=== PATIENT | female | born 1975 | race Caucasian/White ===

== ENCOUNTER 2021-02-13 20:25 | Emergency (ER) | payer OTHER ==
[~2021-02-13] VITALS: Ht 165.1 cm; Wt 63.5 kg
[~2021-02-13 20:25] MED LIST: NO REPORTABLE MEDS
--- NOTE | 2021-02-13 21:00 | NUR ---
PATIENT BIB C/O LEFT LEFT SIDED CHEST PAIN NONRADIATING THAT STARTED TODAY. PATIENT STATED NAUSEOUS ALSO. PATIENT IS A/O X 4, RR EVEN AND UNLABORED, NO SOB NOTED. 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
[2021-02-13 21:14] LABS: BASOPHILS % (AUTO) 0.9 % (0.0-2.0); HEMATOCRIT 40 % (33-45); HEMOGLOBIN 13.5 g/dL (11.5-14.8); LYMPHOCYTES # (AUTO) 1.4 K/uL (0.8-4.8); MEAN CORPUSCULAR HGB CONC 34 g/dl (31.0-36.0); MEAN CORPUSCULAR VOLUME 96 fL (82-100); MONOCYTES # (AUTO) 0.6 K/uL (0.1-1.30); MONOCYTES % (AUTO) 10.7 % (2.0-12.0); NEUTROPHILS # (AUTO) 3.2 K/uL (1.8-8.9); NEUTROPHILS % (AUTO) 60.4 % (43.0-81.0); PLATELET COUNT (AUTO) 280 K/uL (150-450); RED BLOOD CELL COUNT(AUTO) 4.16 MIL/uL (4.0-5.2); WHITE BLOOD COUNT (AUTO) 5.4 K/uL (4.3-11.0)
[2021-02-13 21:38] LABS: CALCIUM, SERUM 9.3 mg/dL (8.5-10.1); CARBON DIOXIDE 28 mmol/L (21-32); CHLORIDE 106 mmol/L (98-107); CREATININE 0.7 mg/dL (0.6-1.3); GLUCOSE 105 mg/dL (74-106); POTASSIUM 3.4 mmol/L (3.5-5.1); SODIUM SERUM 143 mmol/L (136-145); UREA NITROGEN, BLOOD 9 mg/dL (7-18)
[2021-02-13 22:31] VITALS: BP 133/80
--- NOTE | 2021-02-13 22:31 | NUR ---
Patient discharged to home in stable condition. Written and verbal after care instructions given. Patient verbalizes understanding of instruction.
== END 2021-02-13 22:32 | disposition home or self-care (01) ==
LOC: ER 20:38
DX: R00.2 Palpitations (principal); I49.3 Ventricular premature depolarization; Z60.2 Problems related to living alone
CPT/HCPCS: 36415; 71045-TC; 80048-TC; 83880; 84484-TC; 85025-TC